=== PATIENT | female | born 1965 | race Caucasian/White ===

== ENCOUNTER 2018-11-06 18:46 | Emergency (ER) | payer BC ==
--- NOTE | 2018-11-06 19:26 | EDM.PDOC ---
ED HPI GENERAL MEDICAL PROBLEM - General Chief Complaint: Upper Extremity Injury/Pain Stated Complaint: LT ARM/WRIST FALL Time Seen by Provider: 11/06/18 19:10 Source of Information: Reports: Patient History Limitations: Reports: No Limitations - History of Present Illness INITIAL COMMENTS - FREE TEXT/NARRATIVE: The patient tripped and fell and landed on her out stretched left arm. She has pain to her left wrist She denies other injuries. She is right handed. Onset: Sudden Duration: Minutes: Location: Denies: Lower Extremity, Left Quality: Reports: Sharp Severity: Moderate Improves with: Reports: Immobilization Worsens with: Reports: Movement Context: Reports: Trauma (Tripped and fell and hurt left wrist) Associated Symptoms: Reports: No Other Symptoms Left Wrist Pain Score (Numeric/FACES): 6 - Related Data Allergies Allergy/AdvReac Type Severity Reaction Status Date / Time No Known Allergies Allergy Verified 11/06/18 19:41 Home Meds: Home Meds Rosuvastatin [Crestor] 10 mg PO DAILY 11/06/18 [History] Review of Systems - Review of Systems Review Of Systems: See Below Constitutional: Reports: No Symptoms Eyes: Reports: No Symptoms Ears: Reports: No Symptoms Nose: Reports: No Symptoms Mouth/Throat: Reports: No Symptoms Respiratory: Reports: No Symptoms Cardiovascular: Reports: No Symptoms GI/Abdominal: Reports: No Symptoms Genitourinary: Reports: No Symptoms Musculoskeletal: Reports: Other (Left wrist pain) ED EXAM, GENERAL - Physical Exam Exam: See Below Exam Limited By: No Limitations General Appearance: Alert, No Apparent Distress Ears: Normal External Exam Nose: Normal Inspection Head: Atraumatic, Normocephalic Neck: Normal Inspection Respiratory/Chest: No Respiratory Distress Extremities: Other (Pain with some edema to the left wrist. Good sensation and capillary refill distally.) Course - Vital Signs Last Recorded V/S: Last Vital Signs Temp 98.4 F 11/06/18 19:08 Pulse 92 11/06/18 19:08 Resp 16 11/06/18 19:08 BP 150/100 H 11/06/18 19:08 Pulse Ox 97 11/06/18 19:08 - Orders/Labs/Meds Orders: Active Orders 24 hr Category Date Time Status Wrist Comp Min 3V Lt [CR] Stat Exams 11/06/18 19:19 Ordered Durable Medical Equipment for Discharge [DME for Oth 11/06/18 19:54 Ordered Discharge] [COMM] Stat - Re-Assessments/Exams Free Text/Narrative Re-Assessment/Exam: 11/06/18 19:26 I have ordered an x-ray of her left wrist. 11/06/18 19:55 She appears to have a distal radius fracture. I will get her in a velcro splint and have her follow up with Dr Collins. Departure - Departure Time of Disposition: 19:55 Disposition: Home, Self-Care 01 Condition: Good Clinical Impression: Fracture of left distal radius Qualifiers: Encounter type: initial encounter Fracture type: closed Fracture morphology: other fracture Qualified Code(s): S52.592A - Other fractures of lower end of left radius, initial encounter for closed fracture - Discharge Information *PRESCRIPTION DRUG MONITORING PROGRAM REVIEWED*: Not Applicable *COPY OF PRESCRIPTION DRUG MONITORING REPORT IN PATIENT JUANA: Not Applicable Referrals: Lu Valentino NP [Primary Care Provider] - Eugenio Collins MD [Physician] - 1 Week Forms: ED Department Discharge Additional Instructions: Ice your wrist for 15 minutes 3 times per day for 2 days. Try to elevate your wrist above your heart as much as you can for 2 days. Take tylenol or motrin for pain. Please return if you are worse. - My Orders Last 24 Hours: My Active Orders 11/06/18 19:19 Wrist Comp Min 3V Lt [CR] Stat 11/06/18 19:54 Durable Medical Equipment for Discharge [DME for Discharge] [COMM] Stat - Assessment/Plan Last 24 Hours: My Active Orders 11/06/18 19:19 Wrist Comp Min 3V Lt [CR] Stat 11/06/18 19:54 Durable Medical Equipment for Discharge [DME for Discharge] [COMM] Stat
--- NOTE | 2018-11-07 06:45 | CR ---
Left wrist: Four views of the left wrist were obtained. Comparison: No prior wrist exam. Fracture is noted within the distal radius which is oblique in orientation with articular extension. Alignment remains very close to anatomic. No additional fracture or other bony abnormality is seen. Soft tissue swelling is present. Impression: 1. Nondisplaced distal left radial fracture. 2. Soft tissue swelling. Diagnostic code #3
== END 2018-11-06 20:03 | disposition home or self-care (01) ==
LOC: JD.ED 18:46
DX: S52.592A Other fractures of lower end of left radius, initial encounter for closed fracture (principal); Z79.899 Other long term (current) drug therapy; W01.0XXA Fall on same level from slipping, tripping and stumbling without subsequent striking against object, initial encounter
CPT/HCPCS: 73110-26-LT; 73110-LT; 99282; 99283

== ENCOUNTER 2020-09-20 16:51 | Emergency (ER) | payer BC ==
--- NOTE | 2020-09-20 17:03 | EDM.PDOC ---
ED HPI GENERAL MEDICAL PROBLEM - General Chief Complaint: Cardiovascular Problem Stated Complaint: RAPID HEART RATE WHEN WALKING Time Seen by Provider: 09/20/20 17:02 - History of Present Illness INITIAL COMMENTS - FREE TEXT/NARRATIVE: 57-year-old female presents the emergency room with fast heart rate especially with activities. Since about July the patient has noticed that her heart rate seems to be a little faster than normal. But this seems to really be have been getting worse over the last several weeks. Last several days she has noticed a significant pounding in her chest when she has activities. She is not have any chest pain or associated shortness of breath with this. But she just feels a little weaker than she should. Patient has not been diagnosed with Covid but wonders if perhaps she had this back in June. Patient was seen in the office a couple of days ago blood work was obtained a urinalysis was done that had some microscopic hematuria. TSH was checked and found to be 1.5 other labs non contributory. Was recently started on amlodipine 5 mg a day for her blood pressure and she has been taking Crestor. In the office she is also getting monitored for possible development of type 2 diabetes. - Related Data Allergies Allergy/AdvReac Type Severity Reaction Status Date / Time No Known Allergies Allergy Verified 11/06/18 19:41 Home Meds: Home Meds Rosuvastatin [Crestor] 10 mg PO DAILY 11/06/18 [History] Metoprolol Succinate [Toprol Xl] 25 mg PO DAILY #20 tab.er.24h 09/20/20 [Rx] amLODIPine [Norvasc] 5 mg PO DAILY 09/20/20 [History] Past Medical History HEENT History: Reports: Impaired Vision Social & Family History - Caffeine Use Caffeine Use: Reports: None ED ROS GENERAL - Review of Systems Review Of Systems: See Below Constitutional: Reports: Malaise, Weakness HEENT: Reports: No Symptoms Respiratory: Reports: No Symptoms Cardiovascular: Reports: Palpitations Endocrine: Reports: Fatigue, Polyuria GI/Abdominal: Reports: No Symptoms : Reports: Frequency Musculoskeletal: Reports: No Symptoms Skin: Reports: No Symptoms Neurological: Reports: No Symptoms Psychiatric: Reports: No Symptoms Hematologic/Lymphatic: Reports: No Symptoms Immunologic: Reports: No Symptoms ED EXAM, GENERAL - Physical Exam Exam: See Below Exam Limited By: No Limitations General Appearance: Alert, No Apparent Distress Eye Exam: Bilateral Eye: Normal Inspection Ears: Normal External Exam, Normal Canal, Hearing Grossly Normal, Normal TMs Nose: Normal Inspection, Normal Mucosa, No Blood Throat/Mouth: Normal Inspection, Normal Lips, Normal Teeth, Normal Gums, Normal Oropharynx, Normal Voice, No Airway Compromise Head: Atraumatic, Normocephalic Neck: Normal Inspection, Supple, Non-Tender, Full Range of Motion. No: Lymphadenopathy (L), Lymphadenopathy (R) Respiratory/Chest: No Respiratory Distress, Lungs Clear, Normal Breath Sounds Cardiovascular: Regular Rate, Rhythm, No Edema, No Murmur GI/Abdominal: Normal Bowel Sounds, Soft, Non-Tender Back Exam: Normal Inspection. No: CVA Tenderness (L), CVA Tenderness (R) Extremities: Normal Inspection, No Pedal Edema Neurological: Alert, Oriented, Normal Cognition Course - Vital Signs Last Recorded V/S: Last Vital Signs Temp 36.1 C 09/20/20 17:09 Pulse 120 H 09/20/20 17:09 Resp 11 L 09/20/20 17:09 BP 162/103 H 09/20/20 17:09 Pulse Ox 98 09/20/20 17:09 Orthostatic Blood Pressure [ 136/93 Standing] Orthostatic Blood Pressure [ 141/101 Sitting] Orthostatic Blood Pressure [ 149/97 Supine] - Orders/Labs/Meds Orders: Active Orders 24 hr Category Date Time Status EKG 12 Lead [EKG Documentation Completion] [RC] STAT Care 09/20/20 17:00 Active Orthostatic Vital Signs [RC] ASDIRECTED Care 09/20/20 17:25 Active Labs: Laboratory Tests 09/20/20 09/20/20 09/20/20 Range/Units 17:49 17:49 17:49 WBC 9.53 (3.98-10.04) K/mm3 RBC 5.00 (3.98-5.22) M/mm3 Hgb 13.9 (11.2-15.7) gm/dl Hct 42.6 (34.1-44.9) % MCV 85.2 (79.4-94.8) fl MCH 27.8 (25.6-32.2) pg MCHC 32.6 (32.2-35.5) g/dl RDW Std Deviation 42.7 (36.4-46.3) fL Plt Count 364 (182-369) K/mm3 MPV 8.7 L (9.4-12.3) fl Neut % (Auto) 77.1 H (34.0-71.1) % Lymph % (Auto) 14.3 L (19.3-51.7) % Tyler % (Auto) 8.2 (4.7-12.5) % Eos % (Auto) 0.1 L (0.7-5.8) Baso % (Auto) 0.2 (0.1-1.2) % Neut # (Auto) 7.35 H (1.56-6.13) K/mm3 Lymph # (Auto) 1.36 (1.18-3.74) K/mm3 Tyler # (Auto) 0.78 H (0.24-0.36) K/mm3 Eos # (Auto) 0.01 L (0.04-0.36) K/mm3 Baso # (Auto) 0.02 (0.01-0.08) K/mm3 D-Dimer, Quantitative < 0.19 L (0.19-0.50) mg/L Sodium 140 (136-145) mEq/L Potassium 3.9 (3.5-5.1) mEq/L Chloride 104 (98-107) mEq/L Carbon Dioxide 24 (21-32) mEq/L Anion Gap 15.9 H (5-15) BUN 13 (7-18) mg/dL Creatinine 0.9 (0.55-1.02) mg/dL Est Cr Clr Drug Dosing 67.87 mL/min Estimated GFR (MDRD) > 60 (>60) mL/min BUN/Creatinine Ratio 14.4 (14-18) Glucose 116 H (74-106) mg/dL Calcium 9.9 (8.5-10.1) mg/dL Magnesium 2.0 (1.8-2.4) mg/dl Total Bilirubin 0.6 (0.2-1.0) mg/dL AST 19 (15-37) U/L ALT 40 (14-59) U/L Alkaline Phosphatase 96 (46-116) U/L Troponin I (0.00-0.056) ng/mL Total Protein 8.3 H (6.4-8.2) g/dl Albumin 4.5 (3.4-5.0) g/dl Globulin 3.8 gm/dL Albumin/Globulin Ratio 1.2 (1-2) 09/20/20 Range/Units 17:49 WBC (3.98-10.04) K/mm3 RBC (3.98-5.22) M/mm3 Hgb (11.2-15.7) gm/dl Hct (34.1-44.9) % MCV (79.4-94.8) fl MCH (25.6-32.2) pg MCHC (32.2-35.5) g/dl RDW Std Deviation (36.4-46.3) fL Plt Count (182-369) K/mm3 MPV (9.4-12.3) fl Neut % (Auto) (34.0-71.1) % Lymph % (Auto) (19.3-51.7) % Tyler % (Auto) (4.7-12.5) % Eos % (Auto) (0.7-5.8) Baso % (Auto) (0.1-1.2) % Neut # (Auto) (1.56-6.13) K/mm3 Lymph # (Auto) (1.18-3.74) K/mm3 Tyler # (Auto) (0.24-0.36) K/mm3 Eos # (Auto) (0.04-0.36) K/mm3 Baso # (Auto) (0.01-0.08) K/mm3 D-Dimer, Quantitative (0.19-0.50) mg/L Sodium (136-145) mEq/L Potassium (3.5-5.1) mEq/L Chloride (98-107) mEq/L Carbon Dioxide (21-32) mEq/L Anion Gap (5-15) BUN (7-18) mg/dL Creatinine (0.55-1.02) mg/dL Est Cr Clr Drug Dosing mL/min Estimated GFR (MDRD) (>60) mL/min BUN/Creatinine Ratio (14-18) Glucose (74-106) mg/dL Calcium (8.5-10.1) mg/dL Magnesium (1.8-2.4) mg/dl Total Bilirubin (0.2-1.0) mg/dL AST (15-37) U/L ALT (14-59) U/L Alkaline Phosphatase (46-116) U/L Troponin I < 0.017 (0.00-0.056) ng/mL Total Protein (6.4-8.2) g/dl Albumin (3.4-5.0) g/dl Globulin gm/dL Albumin/Globulin Ratio (1-2) Meds: Medications Discontinued Medications Generic Name Dose Route Start Last Admin Trade Name Merle PRN Reason Stop Dose Admin Lactated Ringer's 1,000 mls @ 999 mls/hr 09/20/20 17:40 09/20/20 18:08 Ringers, Lactated IV 09/20/20 18:40 999 mls/hr .BOLUS ONE Administration Metoprolol Succinate 25 mg 09/20/20 19:31 Toprol Xl PO 09/20/20 19:32 ONETIME ONE - Re-Assessments/Exams Free Text/Narrative Re-Assessment/Exam: 09/20/20 19:31 Laboratory evaluation nondiagnostic D-dimer normal troponin normal. Patient received a liter of fluid that may have helped some but I do not think it is the answer. I have recommended the patient stop her amlodipine we will start her on Toprol-XL 25 mg daily and see if this helps with her tachycardia as well as her blood pressure. I am going to put an order in for outpatient cardiac echo. Departure - Departure Time of Disposition: 19:34 Disposition: Home, Self-Care 01 Clinical Impression: Tachycardia with hypertension Prescriptions: Metoprolol Succinate [Toprol Xl] 25 mg PO DAILY #20 tab.er.24h Instructions: Supraventricular Tachycardia, Adult, [id number], Hypertension, Adult, [id number] Referrals: Lu Valentino [employer] [employer] [Primary Care Provider] - Forms: ED Department Discharge Additional Instructions: ED HPI GENERAL MEDICAL PROBLEM - General Chief Complaint: Cardiovascular Problem Stated Complaint: RAPID HEART RATE WHEN WALKING Time Seen by Provider: 09/20/20 17:02 - History of Present Illness INITIAL COMMENTS - FREE TEXT/NARRATIVE: 57-year-old female presents the emergency room with fast heart rate especially with activities. Since about July the patient has noticed that her heart rate seems to be a little faster than normal. But this seems to really be have been getting worse over the last several weeks. Last several days she has noticed a significant pounding in her chest when she has activities. She is not have any chest pain or associated shortness of breath with this. But she just feels a little weaker than she should. Patient has not been diagnosed with Covid but wonders if perhaps she had this back in June. Patient was seen in the office a couple of days ago blood work was obtained a urinalysis was done that had some microscopic hematuria. TSH was checked and found to be 1.5 other labs noncontributory. Was recently started on amlodipine 5 mg a day for her blood pressure and she has been taking Crestor. In the office she is also getting monitored for possible development of type 2 diabetes. - Related Data Allergies Allergy/AdvReac Type Severity Reaction Status Date / Time No Known Allergies Allergy Verified 11/06/18 19:41 Home Meds: Home Meds Rosuvastatin [Crestor] 10 mg PO DAILY 11/06/18 [History] Metoprolol Succinate [Toprol Xl] 25 mg PO DAILY #20 tab.er.24h 09/20/20 [Rx] amLODIPine [Norvasc] 5 mg PO DAILY 09/20/20 [History] Past Medical History HEENT History: Reports: Impaired Vision Social & Family History - Caffeine Use Caffeine Use: Reports: None ED ROS GENERAL - Review of Systems Review Of Systems: See Below Constitutional: Reports: Malaise, Weakness HEENT: Reports: No Symptoms Respiratory: Reports: No Symptoms Cardiovascular: Reports: Palpitations Endocrine: Reports: Fatigue, Polyuria GI/Abdominal: Reports: No Symptoms : Reports: Frequency Musculoskeletal: Reports: No Symptoms Skin: Reports: No Symptoms Neurological: Reports: No Symptoms Psychiatric: Reports: No Symptoms Hematologic/Lymphatic: Reports: No Symptoms Immunologic: Reports: No Symptoms ED EXAM, GENERAL - Physical Exam Exam: See Below Exam Limited By: No Limitations General Appearance: Alert, No Apparent Distress Eye Exam: Bilateral Eye: Normal Inspection Ears: Normal External Exam, Normal Canal, Hearing Grossly Normal, Normal TMs Nose: Normal Inspection, Normal Mucosa, No Blood Throat/Mouth: Normal Inspection, Normal Lips, Normal Teeth, Normal Gums, Normal Oropharynx, Normal Voice, No Airway Compromise Head: Atraumatic, Normocephalic Neck: Normal Inspection, Supple, Non-Tender, Full Range of Motion. No: Lymphadenopathy (L), Lymphadenopathy (R) Respiratory/Chest: No Respiratory Distress, Lungs Clear, Normal Breath Sounds Cardiovascular: Regular Rate, Rhythm, No Edema, No Murmur GI/Abdominal: Normal Bowel Sounds, Soft, Non-Tender Back Exam: Normal Inspection. No: CVA Tenderness (L), CVA Tenderness (R) Extremities: Normal Inspection, No Pedal Edema Neurological: Alert, Oriented, Normal Cognition Course - Vital Signs Last Recorded V/S: Last Vital Signs Temp 36.1 C 09/20/20 17:09 Pulse 120 H 09/20/20 17:09 Resp 11 L 09/20/20 17:09 BP 162/103 H 09/20/20 17:09 Pulse Ox 98 09/20/20 17:09 Orthostatic Blood Pressure [ 136/93 Standing] Orthostatic Blood Pressure [ 141/101 Sitting] Orthostatic Blood Pressure [ 149/97 Supine] - Orders/Labs/Meds Orders: Active Orders 24 hr Category Date Time Status EKG 12 Lead [EKG Documentation Completion] [RC] STAT Care 09/20/20 17:00 Active Orthostatic Vital Signs [RC] ASDIRECTED Care 09/20/20 17:25 Active Labs: Laboratory Tests 09/20/20 09/20/20 09/20/20 Range/Units 17:49 17:49 17:49 WBC 9.53 (3.98-10.04) K/mm3 RBC 5.00 (3.98-5.22) M/mm3 Hgb 13.9 (11.2-15.7) gm/dl Hct 42.6 (34.1-44.9) % MCV 85.2 (79.4-94.8) fl MCH 27.8 (25.6-32.2) pg MCHC 32.6 (32.2-35.5) g/dl RDW Std Deviation 42.7 (36.4-46.3) fL Plt Count 364 (182-369) K/mm3 MPV 8.7 L (9.4-12.3) fl Neut % (Auto) 77.1 H (34.0-71.1) % Lymph % (Auto) 14.3 L (19.3-51.7) % Tyler % (Auto) 8.2 (4.7-12.5) % Eos % (Auto) 0.1 L (0.7-5.8) Baso % (Auto) 0.2 (0.1-1.2) % Neut # (Auto) 7.35 H (1.56-6.13) K/mm3 Lymph # (Auto) 1.36 (1.18-3.74) K/mm3 Tyler # (Auto) 0.78 H (0.24-0.36) K/mm3 Eos # (Auto) 0.01 L (0.04-0.36) K/mm3 Baso # (Auto) 0.02 (0.01-0.08) K/mm3 D-Dimer, Quantitative < 0.19 L (0.19-0.50) mg/L Sodium 140 (136-145) mEq/L Potassium 3.9 (3.5-5.1) mEq/L Chloride 104 (98-107) mEq/L Carbon Dioxide 24 (21-32) mEq/L Anion Gap 15.9 H (5-15) BUN 13 (7-18) mg/dL Creatinine 0.9 (0.55-1.02) mg/dL Est Cr Clr Drug Dosing 67.87 mL/min Estimated GFR (MDRD) > 60 (>60) mL/min BUN/Creatinine Ratio 14.4 (14-18) Glucose 116 H (74-106) mg/dL Calcium 9.9 (8.5-10.1) mg/dL Magnesium 2.0 (1.8-2.4) mg/dl Total Bilirubin 0.6 (0.2-1.0) mg/dL AST 19 (15-37) U/L ALT 40 (14-59) U/L Alkaline Phosphatase 96 (46-116) U/L Troponin I (0.00-0.056) ng/mL Total Protein 8.3 H (6.4-8.2) g/dl Albumin 4.5 (3.4-5.0) g/dl Globulin 3.8 gm/dL Albumin/Globulin Ratio 1.2 (1-2) 09/20/20 Range/Units 17:49 WBC (3.98-10.04) K/mm3 RBC (3.98-5.22) M/mm3 Hgb (11.2-15.7) gm/dl Hct (34.1-44.9) % MCV (79.4-94.8) fl MCH (25.6-32.2) pg MCHC (32.2-35.5) g/dl RDW Std Deviation (36.4-46.3) fL Plt Count (182-369) K/mm3 MPV (9.4-12.3) fl Neut % (Auto) (34.0-71.1) % Lymph % (Auto) (19.3-51.7) % Tyler % (Auto) (4.7-12.5) % Eos % (Auto) (0.7-5.8) Baso % (Auto) (0.1-1.2) % Neut # (Auto) (1.56-6.13) K/mm3 Lymph # (Auto) (1.18-3.74) K/mm3 Tyler # (Auto) (0.24-0.36) K/mm3 Eos # (Auto) (0.04-0.36) K/mm3 Baso # (Auto) (0.01-0.08) K/mm3 D-Dimer, Quantitative (0.19-0.50) mg/L Sodium (136-145) mEq/L Potassium (3.5-5.1) mEq/L Chloride (98-107) mEq/L Carbon Dioxide (21-32) mEq/L Anion Gap (5-15) BUN (7-18) mg/dL Creatinine (0.55-1.02) mg/dL Est Cr Clr Drug Dosing mL/min Estimated GFR (MDRD) (>60) mL/min BUN/Creatinine Ratio (14-18) Glucose (74-106) mg/dL Calcium (8.5-10.1) mg/dL Magnesium (1.8-2.4) mg/dl Total Bilirubin (0.2-1.0) mg/dL AST (15-37) U/L ALT (14-59) U/L Alkaline Phosphatase (46-116) U/L Troponin I < 0.017 (0.00-0.056) ng/mL Total Protein (6.4-8.2) g/dl Albumin (3.4-5.0) g/dl Globulin gm/dL Albumin/Globulin Ratio (1-2) Meds: Medications Discontinued Medications Generic Name Dose Route Start Last Admin Trade Name Freq PRN Reason Stop Dose Admin Lactated Ringer's 1,000 mls @ 999 mls/hr 09/20/20 17:40 09/20/20 18:08 Ringers, Lactated IV 09/20/20 18:40 999 mls/hr .BOLUS ONE Administration - Re-Assessments/Exams Free Text/Narrative Re-Assessment/Exam: 09/20/20 19:31 Laboratory evaluation nondiagnostic D-dimer normal troponin normal. Patient received a liter of fluid that may have helped some but I do not think it is the answer. I have recommended the patient stop her amlodipine we will start her on Toprol-XL 25 mg daily and see if this helps with her tachycardia as well as her blood pressure. I am going to put an order in for outpatient cardiac echo. Departure - Departure Time of Disposition: 19:34 Disposition: Home, Self-Care 01 Clinical Impression: Tachycardia with hypertension Referrals: Lu Valentino, [facility] [Primary Care Provider] - Forms: ED Department Discharge Additional Instructions: Return to the emergency room with any questions problems or worsening symptoms. You should be contacted Wednesday for a scheduling of the echocardiogram. Follow-up with Lu Valentino several days after the echocardiogram is done Stop the amlodipine for now. You have been started on Toprol-XL, this is long- acting metoprolol. Start 1 daily. Reassess how it is working on your follow-up in the clinic I would anticipate this next week. Sepsis Event Note (ED) - Focused Exam Vital Signs: Vital Signs Temp Pulse Resp BP Pulse Ox 09/20/20 17:09 36.1 C 120 H 11 L 162/103 H 98 - My Orders Last 24 Hours: My Active Orders 09/20/20 17:00 EKG 12 Lead [EKG Documentation Completion] [RC] STAT 09/20/20 17:25 Orthostatic Vital Signs [RC] ASDIRECTED - Assessment/Plan Last 24 Hours: My Active Orders 09/20/20 17:00 EKG 12 Lead [EKG Documentation Completion] [RC] STAT 09/20/20 17:25 Orthostatic Vital Signs [RC] ASDIRECTED Return to the emergency room with any questions problems or worsening symptoms. You should be contacted Wednesday for a scheduling of the echocardiogram. Follow-up with Lu Valentino several days after the echocardiogram is done Stop the amlodipine for now. You have been started on Toprol-XL, this is long- acting metoprolol. Start 1 daily. After 3 days of taking 1 daily increase to 2 daily, you may take both at the same time. Sepsis Event Note (ED) - Focused Exam Vital Signs: Vital Signs Temp Pulse Resp BP Pulse Ox 09/20/20 17:09 36.1 C 120 H 11 L 162/103 H 98 - My Orders Last 24 Hours: My Active Orders 09/20/20 17:00 EKG 12 Lead [EKG Documentation Completion] [RC] STAT 09/20/20 17:25 Orthostatic Vital Signs [RC] ASDIRECTED - Assessment/Plan Last 24 Hours: My Active Orders 09/20/20 17:00 EKG 12 Lead [EKG Documentation Completion] [RC] STAT 09/20/20 17:25 Orthostatic Vital Signs [RC] ASDIRECTED
[2020-09-20] MEDS ORDERED: Lactated Ringers 1,000 ML IV ONE (17:40)
[2020-09-20] MEDS ORDERED: Metoprolol Succinate 25 MG Tab.ER PO ONE (19:31)
== END 2020-09-20 20:30 | disposition home or self-care (01) ==
LOC: JD.ED 16:51
DX: I10 Essential (primary) hypertension (principal); R00.0 Tachycardia, unspecified; Z79.899 Other long term (current) drug therapy
CPT/HCPCS: 36415; 80053; 83735; 84484; 85025; 85379; 93005; 99285; A9270; J7120; 99284

== ENCOUNTER 2025-03-22 11:16 | Emergency (ER) | payer BC | END 2025-03-22 12:54 | disposition home or self-care (01) | LOC: JD.ED 11:16 | DX: M25.561 Pain in right knee (principal); Z79.899 Other long term (current) drug therapy; W23.0XXA Caught, crushed, jammed, or pinched between moving objects, initial encounter | CPT/HCPCS: 73562-26-RT; 73562-RT; 99283 ==